=== PATIENT | female | born 1980 | race African-American/Black ===

== ENCOUNTER 2017-01-24 13:01 | Inpatient (IN) | payer MEDICAID, OTHER ==
[~2017-01-24] VITALS: Ht 165.1 cm; Wt 67.3 kg
[~2017-01-24 13:01] MED LIST: BACT800T5 PO
[2017-01-24 13:05] VITALS: BP 96/55; PULSE 118; RESP 24; TEMP 97.7; O2SAT 95
[2017-01-24] MEDS ORDERED: SODIUM CHLOR 0.9% 1000 ML INJ 1,000 ML IV SCH (13:41)
--- NOTE | 2017-01-24 13:42 | PD ---
HPI Chief Complaint: GI Complaint Time Seen by Provider: 13:42 Travel History International Travel<30 days: No Contact w/Intl Traveler<30days: No Traveled to known affect area: No History of Present Illness HPI 36-year-old female presents to emergency department for evaluation of nausea, vomiting, abdominal pain worsening over the last 24 hours. Pain is a 10 out of 10, sharp, stabbing. Patient has also had severe back pain, cramping. Pain is mostly epigastric and right upper quadrant. Not certain of fever but reports chills. Reports urinary frequency and hematuria that began today. Denies any vaginal discharge or bleeding states that she is due for her menstrual cycle. No other symptoms to report at this time. [facility] Past Medical History Medical History: Denies Significant Hx ?: Not LMP: 12/31/16 Social History Alcohol Use: No Tobacco Use: No Substance Use: No Allergies-Medications (Allergen,Severity, Reaction): Coded Allergies: No Known Allergies (Verified , 04/02/14) Reported Meds & Prescriptions Reported Meds & Active Scripts Active No Active Prescriptions or Reported Medications Review of Systems Except as stated in HPI: all other systems reviewed are Neg Physical Exam Narrative GENERAL: Well-nourished female patient, appears as though she does not feel well but in no acute distress SKIN: Warm and dry. HEAD: Atraumatic. Normocephalic. EYES: Pupils equal and round. No scleral icterus. No injection or drainage. ENT: No nasal bleeding or discharge. Mucous membranes pink and moist. NECK: Trachea midline. No JVD. CARDIOVASCULAR: Tachycardic rate and rhythm. No murmur appreciated. RESPIRATORY: No accessory muscle use. Clear to auscultation. Breath sounds equal bilaterally. Abdomen: Abdomen soft, nondistended. Significant right upper quadrant tenderness. Positive bowel sounds. Mild guarding. MUSCULOSKELETAL: No obvious deformities. No clubbing. No cyanosis. No edema. Right CVA tenderness NEUROLOGICAL: Awake and alert. No obvious cranial nerve deficits. Motor grossly within normal limits. Normal speech. PSYCHIATRIC: Appropriate mood and affect; insight and judgment normal. Data Data Last Documented VS Vital Signs Date Time Temp Pulse Resp B/P Pulse Ox O2 Delivery O2 Flow Rate FiO2 01/24/17 18:25 95 20 101/62 98 01/24/17 13:59 Room Air 01/24/17 13:05 97.7 Orders Complete Blood Count With Diff (01/24/17 13:41) Comprehensive Metabolic Panel (01/24/17 13:41) Lipase (01/24/17 13:41) Prothrombin Time / Inr (Pt) (01/24/17 13:41) Act Partial Throm Time (Ptt) (01/24/17 13:41) Urinalysis - C+S If Indicated (01/24/17 13:41) Ct Abd/Pel W Iv Contrast(Rout) (01/24/17 13:41) Iv Access Insert/Monitor (01/24/17 13:41) Ecg Monitoring (01/24/17 13:41) Oximetry (01/24/17 13:41) Ondansetron Inj (Zofran Inj) (01/24/17 13:45) Sodium Chlor 0.9% 1000 Ml Inj (Ns 1000 M (01/24/17 13:41) Sodium Chloride 0.9% Flush (Ns Flush) (01/24/17 13:45) Ed Urine Pregnancytest Poc (01/24/17 13:41) Ketorolac Inj (Toradol Inj) (01/24/17 13:45) Ceftriaxone Inj (Rocephin Inj) (01/24/17 14:15) Chest, Single Ap (01/24/17 ) Blood Culture (01/24/17 17:32) Lactic Acid Sepsis Protocol (01/24/17 17:32) Electrocardiogram (01/24/17 17:32) Influenzae A/B Antigen (01/24/17 17:32) Piperacil-Tazo 4.5 Gm Premix (Zosyn 4.5 (01/24/17 17:32) Sodium Chlor 0.9% 1000 Ml Inj (Ns 1000 M (01/24/17 17:33) Sodium Chlor 0.9% 1000 Ml Inj (Ns 1000 M (01/24/17 17:45) Iohexol 350 Inj (Omnipaque 350 Inj) (01/24/17 17:50) Levofloxacin 750 Mg Premix Inj (Levaquin (01/24/17 18:45) Metronidazole 500 Mg Inj (Flagyl 500 Mg (01/24/17 18:45) Morphine Inj (Morphine Inj) (01/24/17 18:45) Admit Order (Ed Use Only) (01/24/17 19:01) Labs Laboratory Tests Test 01/24/17 01/24/17 01/24/17 16:30 17:25 18:00 White Blood Count 15.6 TH/MM3 Red Blood Count 3.55 MIL/MM3 Hemoglobin 11.4 GM/DL Hematocrit 33.4 % Mean Corpuscular Volume 94.0 FL Mean Corpuscular Hemoglobin 32.2 PG Mean Corpuscular Hemoglobin 34.2 % Concent Red Cell Distribution Width 13.3 % Platelet Count 171 TH/MM3 Mean Platelet Volume 8.8 FL Neutrophils (%) (Auto) 98.3 % Lymphocytes (%) (Auto) 1.2 % Monocytes (%) (Auto) 0.1 % Eosinophils (%) (Auto) 0.1 % Basophils (%) (Auto) 0.3 % Neutrophils # (Auto) 15.3 TH/MM3 Lymphocytes # (Auto) 0.2 TH/MM3 Monocytes # (Auto) 0.0 TH/MM3 Eosinophils # (Auto) 0.0 TH/MM3 Basophils # (Auto) 0.0 TH/MM3 CBC Comment DIFF FINAL Differential Comment Prothrombin Time 12.6 SEC Prothromb Time International 1.1 RATIO Ratio Activated Partial 26.9 SEC Thromboplast Time Sodium Level 144 MEQ/L Potassium Level 3.2 MEQ/L Chloride Level 114 MEQ/L Carbon Dioxide Level 21.4 MEQ/L Anion Gap 9 MEQ/L Blood Urea Nitrogen 10 MG/DL Creatinine 1.19 MG/DL Estimat Glomerular Filtration 62 ML/MIN Rate Random Glucose 117 MG/DL Calcium Level 7.7 MG/DL Total Bilirubin 0.4 MG/DL Aspartate Amino Transf 17 U/L (AST/SGOT) Alanine Aminotransferase 10 U/L (ALT/SGPT) Alkaline Phosphatase 45 U/L Total Protein 5.6 GM/DL Albumin 3.0 GM/DL Lipase 143 U/L Urine Color LIGHT-RED Urine Turbidity CLOUDY Urine pH 6.0 Urine Specific [place] 1.014 Urine Protein 30 mg/dL Urine Glucose (UA) NEG mg/dL Urine Ketones 10 mg/dL Urine Occult Blood LARGE Urine Nitrite NEG Urine Bilirubin NEG Urine Urobilinogen LESS THAN 2.0 MG/DL Urine Leukocyte Esterase SMALL Urine RBC /hpf Urine WBC 4 /hpf Microscopic Urinalysis Comment CULT NOT INDICATED Lactic Acid Level 3.5 mmol/L MDM Medical Decision Making Medical Screen Exam Complete: Yes Emergency Medical Condition: Yes Medical Record Reviewed: Yes Differential Diagnosis Pyelonephritis versus cholecystitis versus renal calculi versus renal colic versus cystitis versus gastroenteritis versus gastritis versus viral syndrome Narrative Course 36-year-old female presents to emergency department for evaluation of nausea, vomiting, back pain, and hematuria. Patient is dry heaving here in the emergency department. IV access is obtained and she is given IV fluids and Zofran. Lab work and CT imaging is ordered. Last Impressions Abdomen/Pelvis CT 01/24/17 1341 Signed Impressions: Service Date/Time: Tuesday, January 24, 2017 17:41 - CONCLUSION: 1. Suspected hepatocellular disease. Liver is enlarged, mildly heterogeneous and there is periportal edema. Small ascites also noted. 2. Large pericholecystic fluid; not sure whether this is related to liver disease or possible acute cholecystitis. Please correlate clinically. 3. 9 mm indeterminate lesion of the right kidney and a nonemergent abdomen MRI with and without contrast is recommended. There are large but simple, benign appearing cysts of the left kidney. Joaquín Melendez MD Chest X-Ray 01/24/17 0000 Signed Impressions: Service Date/Time: Tuesday, January 24, 2017 14:17 - CONCLUSION: No acute cardiopulmonary disease demonstrated. Joaquín Melendez MD Laboratory Tests Test 01/24/17 01/24/17 01/24/17 16:30 17:25 18:00 White Blood Count 15.6 TH/MM3 Red Blood Count 3.55 MIL/MM3 Hemoglobin 11.4 GM/DL Hematocrit 33.4 % Mean Corpuscular Volume 94.0 FL Mean Corpuscular Hemoglobin 32.2 PG Mean Corpuscular Hemoglobin 34.2 % Concent Red Cell Distribution Width 13.3 % Platelet Count 171 TH/MM3 Mean Platelet Volume 8.8 FL Neutrophils (%) (Auto) 98.3 % Lymphocytes (%) (Auto) 1.2 % Monocytes (%) (Auto) 0.1 % Eosinophils (%) (Auto) 0.1 % Basophils (%) (Auto) 0.3 % Neutrophils # (Auto) 15.3 TH/MM3 Lymphocytes # (Auto) 0.2 TH/MM3 Monocytes # (Auto) 0.0 TH/MM3 Eosinophils # (Auto) 0.0 TH/MM3 Basophils # (Auto) 0.0 TH/MM3 CBC Comment DIFF FINAL Differential Comment Prothrombin Time 12.6 SEC Prothromb Time International 1.1 RATIO Ratio Activated Partial 26.9 SEC Thromboplast Time Sodium Level 144 MEQ/L Potassium Level 3.2 MEQ/L Chloride Level 114 MEQ/L Carbon Dioxide Level 21.4 MEQ/L Anion Gap 9 MEQ/L Blood Urea Nitrogen 10 MG/DL Creatinine 1.19 MG/DL Estimat Glomerular Filtration 62 ML/MIN Rate Random Glucose 117 MG/DL Calcium Level 7.7 MG/DL Total Bilirubin 0.4 MG/DL Aspartate Amino Transf 17 U/L (AST/SGOT) Alanine Aminotransferase 10 U/L (ALT/SGPT) Alkaline Phosphatase 45 U/L Total Protein 5.6 GM/DL Albumin 3.0 GM/DL Lipase 143 U/L Urine Color LIGHT-RED Urine Turbidity CLOUDY Urine pH 6.0 Urine Specific [place] 1.014 Urine Protein 30 mg/dL Urine Glucose (UA) NEG mg/dL Urine Ketones 10 mg/dL Urine Occult Blood LARGE Urine Nitrite NEG Urine Bilirubin NEG Urine Urobilinogen LESS THAN 2.0 MG/DL Urine Leukocyte Esterase SMALL Urine RBC /hpf Urine WBC 4 /hpf Microscopic Urinalysis Comment CULT NOT INDICATED Lactic Acid Level 3.5 mmol/L I spoke with my attending regarding the pt. CT results. I spoke with Dr. Escobar. He requested admission to medicine, IV Levaquin and Flagyl. I Spoke with Dr. Acosta. Patient will be admitted to service with a consult to [facility] surgical services. Patient's pain continues to worsen. I have asked that my attending physician reassess her. He contacted Dr. escobar in regards to patient' s worsening pain. He will come in to assess pt. Sepsis Criteria SIRS Criteria (2 or more): Heart rate over 90, WBC > 91869, < 4000 or > 10% bands Sepsis Criteria (SIRS+source): Infect source susp/known Severe Sepsis (+one): Lactate >2 Diagnosis Primary Impression: Severe sepsis Additional Impressions: Abdominal pain Qualified Code: R10.11 - Right upper quadrant abdominal pain Hepatosplenomegaly Cholecystitis, unspecified Admitting Information Admitting Physician Requests: Admit Scripts No Active Prescriptions or Reported Meds Condition: Stable Mago De SouzaP Jan 24, 2017 13:42
[2017-01-24] MEDS ORDERED: SODIUM CHLORIDE 0.9% FLUSH 5 ML FLUSH IVF PRN ×2 (13:45→19:15)
[2017-01-24] MEDS ORDERED: KETOROLAC TROMETHAMINE 30 MG/ML (IVP) VIAL IV PUSH ONE (13:45)
[2017-01-24] MEDS ORDERED: ONDANSETRON HCL 4 MG/2 ML VIAL IVP ONE (13:45)
[2017-01-24] MEDS ORDERED: cefTRIAXone INJ 1,000 MG in SODIUM CHLORIDE 0.9% INJ 100 ML IV ONE (14:15)
--- NOTE | 2017-01-24 14:49 | RADRPT ---
EXAM DATE/TIME: 01/24/2017 14:17 [facility] COMPARISON: No previous studies available for comparison. INDICATIONS : Coughing with radiating pain MEDICAL HISTORY : None. SURGICAL HISTORY : None. ENCOUNTER: Initial ACUITY: 1 day PAIN SCORE: 9/10 LOCATION: Bilateral chest FINDINGS: A single view of the chest demonstrates the lungs to be symmetrically aerated without evidence of mas s, infiltrate or effusion. The cardiomediastinal contours are unremarkable. Osseous structures are intact. CONCLUSION: No acute cardiopulmonary disease demonstrated. Joaquín Melendez MD on January 24, 2017 at 14:48 Board Certified Radiologist. This report was verified electronically.
[2017-01-24 16:41] LABS: AUTOMATED NEUTROPHIL # 15.3 TH/MM3 (1.8-7.7); BASOPHIL % 0.3 % (0.0-2.0); EOSINOPHIL % 0.1 % (0.0-4.0); HEMATOCRIT 33.4 % (35.0-46.0); HEMO FLAGS DIFF FINAL; LYMPH % 1.2 % (9.0-44.0); LYMPHOCYTE # 0.2 TH/MM3 (1.0-4.8); MEAN CORPUSCULAR HEMOGLOBIN 32.2 PG (27.0-34.0); MEAN CORPUSCULAR HGB CONC 34.2 % (32.0-36.0); MONO % 0.1 % (0.0-8.0); NEUT % 98.3 % (16.0-70.0); PLATELET COUNT 171 TH/MM3 (150-450); RED BLOOD COUNT 3.55 MIL/MM3 (4.00-5.30); RED CELL DISTRIBUTION WIDTH 13.3 % (11.6-17.2); WHITE BLOOD COUNT 15.6 TH/MM3 (4.0-11.0)
[2017-01-24 16:56] LABS: APTT (PATIENT) 26.9 SEC (24.3-30.1); INTERNATIONAL NORMALIZED RATIO 1.1 RATIO; PROTHROMBIN TIME - PATIENT 12.6 SEC (9.8-11.6)
[2017-01-24 17:00] VITALS: BP 100/55; PULSE 101; RESP 21; O2SAT 95
[2017-01-24 17:03] LABS: ALT (GPT) 10 U/L (10-53); ANION GAP 9 MEQ/L (5-15); AST (GOT) 17 U/L (15-37); BICARBONATE 21.4 MEQ/L (21.0-32.0); BLOOD UREA NITROGEN 10 MG/DL (7-18); CHLORIDE 114 MEQ/L (98-107); GLOMERULAR FILTRATION RATE 62 ML/MIN (>89); POTASSIUM 3.2 MEQ/L (3.5-5.1); SODIUM (NA) 144 MEQ/L (136-145)
[2017-01-24 17:05] LABS: ALKALINE PHOSPHATASE 45 U/L (45-117); TOTAL BILIRUBIN ADULT 0.4 MG/DL (0.2-1.0)
[2017-01-24] MEDS ORDERED: PIPERACIL-TAZO 4.5 GM PREMIX 100 ML IV STA (17:32)
[2017-01-24] MEDS ORDERED: SODIUM CHLOR 0.9% 1000 ML INJ 1,000 ML IV ONE ×2 (17:33→17:45)
[2017-01-24] MEDS ORDERED: IOHEXOL 350 MG/ML 10 ML VIAL (for RAD DIAG) IV ONE (17:50)
[2017-01-24 17:55] LABS: BLOOD, URINE LARGE (NEG); COMMENT (UR) CULT NOT INDICATED; CULTURE IF INDICATED CULT NOT INDICATED; GLUCOSE,URINE NEG (NEG); KETONE, URINE 10 mg/dL (NEG); NITRITE,URINE NEG (NEG); URINE COLOR LIGHT-RED (YELLW/STRAW)
--- NOTE | 2017-01-24 18:03 | RADRPT ---
EXAM DATE/TIME: 01/24/2017 17:41 This report includes an Addendum and supersedes previous reports for this exam. [facility] COMPARISON: No previous studies available for comparison. INDICATIONS : Nausea, vomiting, abdominal pain and hematuria. IV CONTRAST: 100 cc Omnipaque 350 (iohexol) IV ORAL CONTRAST: No oral contrast ingested. RADIATION DOSE: 5.12 CTDIvol (mGy) MEDICAL HISTORY : None SURGICAL HISTORY : None. ENCOUNTER: Initial ACUITY: 2 days PAIN SCALE: 8/10 LOCATION: Right upper quadrant and lower quadrant TECHNIQUE: Volumetric scanning of the abdomen and pelvis was performed. Using automated exposure control and ad justment of the mA and/or kV according to patient size, radiation dose was kept as low as reasonably achievable to obtain optimal diagnostic quality images. FINDINGS: Wall thickening and marked pericholecystic fluid seen in the gallbladder. Small stones are possible. There is periportal edema. I don't see distention of the common bile duct. Small perihepatic ascites. There is free fluid tracking into the pelvis. Nothing organized or drainable. I don't see intraperit loya hemorrhage. Liver is enlarged at 20 cm craniocaudal. The spleen is normal size. No stone or destruction seen of either kidney. Right kidney has a 9 mm intermediate density lesion of the mid zone. There are cysts of the left kidney measuring 5 cm of the upper pole and 3.4 cm of the lower pole. No obstruction or inflammatory changes are seen at the gastrointestinal tract. The appendix is well-v isualized, within normal limits. CONCLUSION: 1. Suspected hepatocellular disease. Liver is enlarged, mildly heterogeneous and there is periportal edema. Small ascites also noted. 2. Large pericholecystic fluid; not sure whether this is related to liver disease or possible acute c holecystitis. Please correlate clinically. 3. 9 mm indeterminate lesion of the right kidney and a nonemergent abdomen MRI with and without contr ast is recommended. There are large but simple, benign appearing cysts of the left kidney. Joaquín Melendez MD on January 24, 2017 at 17:54 Board Certified Radiologist. This report was verified electronically. ADDENDUM: Liver is enlarged at 20 cm craniocaudal. Spleen is normal size. Joaquín Melendez MD on January 24, 2017 at 20:02 Board Certified Radiologist. This report was verified electronically.
[2017-01-24 18:25] VITALS: BP 101/62; PULSE 95; RESP 20; O2SAT 98
[2017-01-24] MEDS ORDERED: MORPHINE SULFATE 4 MG/ML INJ IV PUSH ONE (18:45)
[2017-01-24] MEDS ORDERED: LEVOFLOXACIN 750 MG PREMIX INJ 150 ML IV ONE (18:45)
[2017-01-24] MEDS ORDERED: metroNIDAZOLE 500 MG INJ 100 ML IV ONE (18:45)
[2017-01-24] MEDS ORDERED: ACETAMINOPHEN 325 MG TAB PO PRN (19:15)
[2017-01-24 19:25] VITALS: BP 122/75; PULSE 102; RESP 24; O2SAT 100
[2017-01-24 20:10] LABS: LACTIC ACID GHOST NOT REPORTABLE
[2017-01-24] MEDS ORDERED: MORPHINE SULFATE 4 MG/ML INJ IV PUSH PRN (21:30)
[2017-01-24] MEDS: SODIUM CHLORIDE 0.9% FLUSH 5 ML FLUSH IVF SCH (21:50)
[2017-01-24 22:13] VITALS: BP 105/72; PULSE 103; RESP 22; O2SAT 100
[2017-01-24] MEDS: NS + KCL 20 MEQ INJ 1,000 ML IV SCH (22:34)
--- NOTE | 2017-01-24 23:21 | PD.CONS ---
General Surgery Consult Gen. surgery consultation: The patient is a 36-year-old lady who began having vague abdominal discomfort although she states it was not really pain several days ago. It the discomfort was associated with what she described as crampy-like pain as could be associated with menstrual cramps and she was beginning to have her period as well. She also noted hematuria which was separate from her menses. She began having nausea earlier on the day of admission which was quite severe and not associated with food intake. Her symptoms progressed and she eventually came to the emergency department around noon today. After admission, she began complaining of severe midepigastric right upper quadrant pain and had several episodes of severe nausea and emesis. At the present time the patient states that she has pain which is present and slightly better than it had been previously. Her nausea has been significantly better. She states she is hungry and would like to eat some fruit. Past medical history: The patient has had hand surgery but otherwise denies any major medical or surgical illnesses. She has had no surgery. She takes no medications and has no known drug allergies. Social history the patient does not smoke or use alcohol. Family history: noncontributory Review of systems: Negative except as in history of present illness. Examination: Vital Signs Date Time Temp Pulse Resp B/P Pulse Ox O2 Delivery O2 Flow Rate FiO2 01/24/17 22:34 20 01/24/17 22:13 103 22 105/72 100 Room Air 01/24/17 19:30 21 01/24/17 19:25 102 24 122/75 100 Room Air 01/24/17 19:25 24 01/24/17 18:25 95 20 101/62 98 01/24/17 17:00 101 21 100/55 95 01/24/17 13:59 Room Air 01/24/17 13:05 97.7 118 24 96/55 95 HEENT: Unremarkable NECK: Trachea midline; there is no palpable adenopathy CHEST: Symmetrical with good breath sounds bilaterally HEART: Regular rate and rhythm with no murmurs or gallops ABDOMEN: Patient's abdomen is soft throughout. She is moderately tender in the mid abdomen and the right upper quadrant but at the time of this examination she does not have a positive Davis sign. There is no guarding or rebound tenderness at this time. EXTREMITIES: Cyanosis clubbing or edema. Peripheral pulses 2+ equal bilaterally. NEURO: No gross abnormalities. Laboratory Tests Test 01/24/17 01/24/17 01/24/17 16:30 17:25 18:00 White Blood Count 15.6 TH/MM3 Red Blood Count 3.55 MIL/MM3 Hemoglobin 11.4 GM/DL Hematocrit 33.4 % Mean Corpuscular Volume 94.0 FL Mean Corpuscular Hemoglobin 32.2 PG Mean Corpuscular Hemoglobin 34.2 % Concent Red Cell Distribution Width 13.3 % Platelet Count 171 TH/MM3 Mean Platelet Volume 8.8 FL Neutrophils (%) (Auto) 98.3 % Lymphocytes (%) (Auto) 1.2 % Monocytes (%) (Auto) 0.1 % Eosinophils (%) (Auto) 0.1 % Basophils (%) (Auto) 0.3 % Neutrophils # (Auto) 15.3 TH/MM3 Lymphocytes # (Auto) 0.2 TH/MM3 Monocytes # (Auto) 0.0 TH/MM3 Eosinophils # (Auto) 0.0 TH/MM3 Basophils # (Auto) 0.0 TH/MM3 CBC Comment DIFF FINAL Differential Comment Prothrombin Time 12.6 SEC Prothromb Time International 1.1 RATIO Ratio Activated Partial 26.9 SEC Thromboplast Time Sodium Level 144 MEQ/L Potassium Level 3.2 MEQ/L Chloride Level 114 MEQ/L Carbon Dioxide Level 21.4 MEQ/L Anion Gap 9 MEQ/L Blood Urea Nitrogen 10 MG/DL Creatinine 1.19 MG/DL Estimat Glomerular Filtration 62 ML/MIN Rate Random Glucose 117 MG/DL Calcium Level 7.7 MG/DL Total Bilirubin 0.4 MG/DL Aspartate Amino Transf 17 U/L (AST/SGOT) Alanine Aminotransferase 10 U/L (ALT/SGPT) Alkaline Phosphatase 45 U/L Total Protein 5.6 GM/DL Albumin 3.0 GM/DL Lipase 143 U/L Urine Color LIGHT-RED Urine Turbidity CLOUDY Urine pH 6.0 Urine Specific [place] 1.014 Urine Protein 30 mg/dL Urine Glucose (UA) NEG mg/dL Urine Ketones 10 mg/dL Urine Occult Blood LARGE Urine Nitrite NEG Urine Bilirubin NEG Urine Urobilinogen LESS THAN 2.0 MG/DL Urine Leukocyte Esterase SMALL Urine RBC /hpf Urine WBC 4 /hpf Microscopic Urinalysis Comment CULT NOT INDICATED Lactic Acid Level 3.5 mmol/L Last 24 hours Impressions Abdomen/Pelvis CT 01/24/17 1341 Signed Impressions: Service Date/Time: Tuesday, January 24, 2017 17:41 - CONCLUSION: 1. Suspected hepatocellular disease. Liver is enlarged, mildly heterogeneous and there is periportal edema. Small ascites also noted. 2. Large pericholecystic fluid; not sure whether this is related to liver disease or possible acute cholecystitis. Please correlate clinically. 3. 9 mm indeterminate lesion of the right kidney and a nonemergent abdomen MRI with and without contrast is recommended. There are large but simple, benign appearing cysts of the left kidney. Joaquín Melendez MD ADDENDUM: Liver is enlarged at 20 cm craniocaudal. Spleen is normal size. Joaquín Melendez MD Chest X-Ray 01/24/17 0000 Signed Impressions: Service Date/Time: Tuesday, January 24, 2017 14:17 - CONCLUSION: No acute cardiopulmonary disease demonstrated. Joaquín Melendez MD Impression: Findings consistent with possible acute cholecystitis. I reviewed the CT scan with Dr. Melendez who feels that the liver has significant disease in it. Her liver function tests are completely normal at this point, so the findings are inconsistent. Her clinical exam is not consistent with severe acute cholecystitis at the time of this examination. Plan: Patient will be given liquids and food (which she would like to have) tonight and will be made nothing by mouth after midnight. I told the patient and her that she may well require surgery in the next 24-48 hours but that I would like to perform several other tests. CBC, BMP, and LFTs been ordered for the morning. Ultrasound of the gallbladder is also ordered for the morning for further evaluation. She will be placed on antibiotics upon admission. Christo Palma MD Jan 24, 2017 23:21
[2017-01-24] MEDS ORDERED: PROMETHAZINE HCL 25 MG TAB PO PRN (23:30)
[2017-01-25] VITALS (7 sets, daily range): BP systolic 94–106; BP diastolic 53–67; PULSE 65–90; RESP 16–20; TEMP 96.9–98.1; O2SAT 93–100
[2017-01-25] MEDS: HYDROmorphone HCL PF 2 MG/ML VIAL IV PUSH PRN ×2 (00:15→08:27)
[2017-01-25] MEDS: ZOLPIDEM TARTRATE 10 MG TAB PO PRN ×2 (00:16→21:31)
[2017-01-25] MEDS: ONDANSETRON HCL 4 MG/2 ML VIAL IV PRN ×3 (00:38→23:17)
[2017-01-25 05:58] LABS: AUTOMATED NEUTROPHIL # 38.3 TH/MM3 (1.8-7.7); BASOPHIL % 0.1 % (0.0-2.0); HEMATOCRIT 31.3 % (35.0-46.0); LYMPH % 0.8 % (9.0-44.0); LYMPHOCYTE # 0.3 TH/MM3 (1.0-4.8); MEAN CELL VOLUME 95.5 FL (80.0-100.0); MEAN CORPUSCULAR HEMOGLOBIN 32.3 PG (27.0-34.0); MEAN CORPUSCULAR HGB CONC 33.8 % (32.0-36.0); MONO % 1.8 % (0.0-8.0); NEUT % 97.3 % (16.0-70.0); PLATELET COUNT 149 TH/MM3 (150-450); RED BLOOD COUNT 3.27 MIL/MM3 (4.00-5.30); RED CELL DISTRIBUTION WIDTH 13.3 % (11.6-17.2); WHITE BLOOD COUNT 39.3 TH/MM3 (4.0-11.0)
[2017-01-25 06:02] LABS: HEMO FLAGS AUTO DIFF
[2017-01-25 06:31] LABS: INDIRECT BILIRUBIN 0.2 MG/DL (0.0-0.8); TOTAL BILIRUBIN ADULT 0.3 MG/DL (0.2-1.0)
[2017-01-25 06:48] LABS: CALCIUM-PROTEIN CORRECTED 8.1 MG/DL (8.5-10.1); TOTAL BILIRUBIN ADULT 0.3 MG/DL (0.2-1.0)
[2017-01-25] MEDS: NS + KCL 20 MEQ INJ 1,000 ML IV SCH (08:26)
[2017-01-25 08:32] LABS: BANDS 43 % (0-6); METAMYELOCYTES 2 % (0-1); NEUTROPHIL # MANUAL DIFF 38.9 TH/MM3 (1.8-7.7); POLYS (SEG NEUTROPHILS) 54 % (16-70); WBC DIFF SAMPLE 100
[2017-01-25 08:33] LABS: PLATELET ESTIMATE SMEAR NORMAL (NORMAL); PLATELET MORPHOLOGY NORMAL (NORMAL); SCAN/DIFF FINAL DIFF MANUAL
--- NOTE | 2017-01-25 08:54 | RADRPT ---
EXAM DATE/TIME: 01/25/2017 08:11 [facility] COMPARISON: No previous studies available for comparison. INDICATIONS : Right upper quadrant pain. MEDICAL HISTORY : Dyspnea. Arthritis. SURGICAL HISTORY : Tendon surgery, right hand. ENCOUNTER: Initial ACUITY: 1 day PAIN SCORE: 4/10 LOCATION: Right upper quadrant MEASUREMENTS: LIVER: 20.3 cm length COMMON DUCT: 5 mm RIGHT KIDNEY: 12.1 x 5.1 x 6.0 cm FINDINGS: LIVER: The liver is enlarged without focal lesion or ductal dilatation. There is mild/moderate ascites seen in Modi's pouch and around the gallbladder fossa COMMON DUCT: No intraluminal mass or stone visualized. GALLBLADDER: No gallstones are seen. The gallbladder wall is thickened. There is scott-cholecystic fluid. PANCREAS: The visualized portions are within normal limits. RIGHT KIDNEY: No evidence of hydronephrosis, stone, or solid mass. There is a 1.0 cm cyst at the mid kidney. CONCLUSION: 1. Hepatomegaly 2. Mild ascites 3. Thickened gallbladder wall. This can be seen with hepatic disease. No gallstones are seen. Acalcul us cholecystitis could have a similar appearance. Joaquín Cullen MD on January 25, 2017 at 8:50 Board Certified Radiologist. This report was verified electronically.
[2017-01-25] MEDS: SODIUM CHLORIDE 0.9% FLUSH 5 ML FLUSH IVF SCH ×2 (09:00→20:54)
--- NOTE | 2017-01-25 11:34 | HHI.HP ---
HPI Service [facility] Hospitalists Primary Care Physician Nkechi Kelley M.D. Admission Diagnosis hepatomegaly, possible acute cholecystitis Chief Complaint: abdomen pain Travel History International Travel<30 Days: No Contact w/Intl Traveler <30 Da: No Traveled to Known Affected Are: No History of Present Illness Pt is 36 yo developed some abdomen pain epigastric then ruq. Has been vomiting no diarrhea. no fever or chills. no diarrhea. Says she is on her menstrual cycle and noted blood in her urine as has occured in the past. She has not had any gynecological evaluations recently. Seen by gen surg last night for pain and possible cholecystitis. given iv abx in ED. Currently in nad. Review of Systems Other mentruating. blood in urine. abdomen pain. vomiting. Past Family Social History Past Medical History left hand surgery Reported Medications Reported Meds & Active Scripts Active No Active Prescriptions or Reported Medications Allergies: Coded Allergies: No Known Allergies (Verified , 01/28/17) Family History nc Social History occ etoh. no tob. Physical Exam Vital Signs nad heart reg lung cta abd mild upper abdomen tenderness no rebound or davenport sign. bs. nd ext no edema Vital Signs Date Time Temp Pulse Resp B/P Pulse Ox O2 Delivery O2 Flow Rate FiO2 01/25/17 09:59 99 21 01/25/17 08:00 97.8 74 20 94/67 100 01/25/17 04:00 97.3 71 18 97/59 100 01/25/17 00:00 83 01/25/17 00:00 96.9 90 16 95/62 100 01/24/17 22:34 20 01/24/17 22:13 103 22 105/72 100 Room Air 01/24/17 19:30 21 01/24/17 19:25 102 24 122/75 100 Room Air 01/24/17 19:25 24 01/24/17 18:25 95 20 101/62 98 01/24/17 17:00 101 21 100/55 95 01/24/17 13:59 Room Air 01/24/17 13:05 97.7 118 24 96/55 95 Laboratory Laboratory Tests Test 01/24/17 01/24/17 01/24/17 01/24/17 16:30 17:25 18:00 23:10 White Blood Count 15.6 Red Blood Count 3.55 Hemoglobin 11.4 Hematocrit 33.4 Mean Corpuscular Volume 94.0 Mean Corpuscular Hemoglobin 32.2 Mean Corpuscular Hemoglobin 34.2 Concent Red Cell Distribution Width 13.3 Platelet Count 171 Mean Platelet Volume 8.8 Neutrophils (%) (Auto) 98.3 Lymphocytes (%) (Auto) 1.2 Monocytes (%) (Auto) 0.1 Eosinophils (%) (Auto) 0.1 Basophils (%) (Auto) 0.3 Neutrophils # (Auto) 15.3 Lymphocytes # (Auto) 0.2 Monocytes # (Auto) 0.0 Eosinophils # (Auto) 0.0 Basophils # (Auto) 0.0 CBC Comment DIFF FINAL Differential Comment Prothrombin Time 12.6 Prothromb Time International 1.1 Ratio Activated Partial 26.9 Thromboplast Time Sodium Level 144 Potassium Level 3.2 Chloride Level 114 Carbon Dioxide Level 21.4 Anion Gap 9 Blood Urea Nitrogen 10 Creatinine 1.19 Estimat Glomerular Filtration 62 Rate Random Glucose 117 Calcium Level 7.7 Total Bilirubin 0.4 Aspartate Amino Transf 17 (AST/SGOT) Alanine Aminotransferase 10 (ALT/SGPT) Alkaline Phosphatase 45 Total Protein 5.6 Albumin 3.0 Lipase 143 Urine Color LIGHT-RED Urine Turbidity CLOUDY Urine pH 6.0 Urine Specific Schuyler 1.014 Urine Protein 30 Urine Glucose (UA) NEG Urine Ketones 10 Urine Occult Blood LARGE Urine Nitrite NEG Urine Bilirubin NEG Urine Urobilinogen LESS THAN 2.0 Urine Leukocyte Esterase SMALL Urine RBC Urine WBC 4 Microscopic Urinalysis Comment CULT NOT INDICATED Lactic Acid Level 3.5 3.3 Test 01/25/17 05:13 White Blood Count 39.3 Red Blood Count 3.27 Hemoglobin 10.6 Hematocrit 31.3 Mean Corpuscular Volume 95.5 Mean Corpuscular Hemoglobin 32.3 Mean Corpuscular Hemoglobin 33.8 Concent Red Cell Distribution Width 13.3 Platelet Count 149 Mean Platelet Volume 9.0 Neutrophils (%) (Auto) 97.3 Lymphocytes (%) (Auto) 0.8 Monocytes (%) (Auto) 1.8 Eosinophils (%) (Auto) 0.0 Basophils (%) (Auto) 0.1 Neutrophils # (Auto) 38.3 Lymphocytes # (Auto) 0.3 Monocytes # (Auto) 0.7 Eosinophils # (Auto) 0.0 Basophils # (Auto) 0.0 CBC Comment AUTO DIFF Differential Total Cells 100 Counted Neutrophils % (Manual) 54 Band Neutrophils % 43 Monocytes % 1 Neutrophils # (Manual) 38.9 Metamyelocytes 2 Differential Comment FINAL DIFF MANUAL Platelet Estimate NORMAL Platelet Morphology Comment NORMAL Red Cell Morphology Comment NORMAL Sodium Level 144 Potassium Level 4.0 Chloride Level 113 Carbon Dioxide Level 21.0 Anion Gap 10 Blood Urea Nitrogen 12 Creatinine 1.23 Estimat Glomerular Filtration 59 Rate Random Glucose 125 Calcium Level 7.4 Protein Corrected Calcium 8.1 Total Bilirubin 0.3 Direct Bilirubin 0.1 Indirect Bilirubin 0.2 Aspartate Amino Transf 18 (AST/SGOT) Alanine Aminotransferase 14 (ALT/SGPT) Alkaline Phosphatase 40 Total Protein 5.9 Albumin 2.8 Date/Time Procedure Status Source Growth 01/24/17 18:00 Aerobic Blood Culture - Preliminary Resulted Blood Peripheral NO GROWTH IN 1 DAY 01/24/17 18:00 Anaerobic Blood Culture - Preliminary Resulted Blood Peripheral NO GROWTH IN 1 DAY 01/24/17 17:32 Influenza Types A,B Antigen (YANY) - Final Complete Nasal Washing NEGATIVE FOR FLU A AND B ANTIGEN.... Result Diagram: 01/25/1751201/25/17512 Assessment and Plan Problem List: (1) Abdominal pain Status: Acute Plan: Pt presents with abdomen pain, alot of pericholecystic fluid concerning for acute cholecystitis, but also hepatomegaly. Also of note pt says she has problems with hematuria when on her menstrual cycle. She has a rising leukocytosis of 39k with 43bands. mariana noted. concern for early sepsis developing. discussed with general surgery. contemplating cholecystectomy...we agreed to GI evaluation before proceeding to surgery. Discussed with Dr Gabriel who will evaluate her this AM. cont broad spectrum abx. ivf Pt may need gynecology/urology eval blood cx pending. ID (2) Hepatomegaly Status: Acute Plan: see above (3) Hematuria Status: Acute Plan: see above (4) MARIANA (acute kidney injury) Status: Acute Plan: see above Physician Certification 2 Midnight Certification Type: Admission for Inpatient Services Order for Inpatient Services 3The services are ordered in accordance with Medicare regulations or non- Medicare payer requirements, as applicable. In the case of services not specified as inpatient-only, they are appropriately provided as inpatient services in accordance with the 2-midnight benchmark. Estimated LOS (days): 3 3 days is the estimated time the patient will need to remain in the hospital, assuming treatment plan goals are met and no additional complications. Post-Hospital Plan: Home Problem Qualifiers (1) Abdominal pain: Qualified Code: R10.11 - Right upper quadrant abdominal pain Satnam Montanez MD Jan 25, 2017 11:34
[2017-01-25] MEDS ORDERED: PROPOFOL 200 MG/20 ML AMP IV ONE (11:46)
[2017-01-25] MEDS ORDERED: NEOSTIGMINE 3 MG/3 ML SYR IV ONE (11:47)
[2017-01-25] MEDS ORDERED: ONDANSETRON HCL 4 MG/2 ML VIAL IV PUSH ONE (11:47)
[2017-01-25] MEDS ORDERED: PHENYLEPH/NS 1000 MCG/10 ML SYR IV ONE (11:47)
[2017-01-25] MEDS: metroNIDAZOLE 500 MG INJ 100 ML IV SCH ×2 (12:22→20:00)
--- NOTE | 2017-01-25 12:23 | HHI.PR ---
Subjective Subjective Notes Still having pain, but her primary complaint is nausea. Objective Vitals/I&O Vital Signs Date Time Temp Pulse Resp B/P Pulse Ox O2 Delivery O2 Flow Rate FiO2 01/25/17 09:59 99 21 01/25/17 08:00 97.8 74 20 94/67 01/24/17 22:13 Room Air Labs Laboratory Tests Test 01/24/17 01/24/17 01/24/17 01/24/17 16:30 17:25 18:00 23:10 White Blood Count 15.6 Red Blood Count 3.55 Hemoglobin 11.4 Hematocrit 33.4 Mean Corpuscular Volume 94.0 Mean Corpuscular Hemoglobin 32.2 Mean Corpuscular Hemoglobin 34.2 Concent Red Cell Distribution Width 13.3 Platelet Count 171 Mean Platelet Volume 8.8 Neutrophils (%) (Auto) 98.3 Lymphocytes (%) (Auto) 1.2 Monocytes (%) (Auto) 0.1 Eosinophils (%) (Auto) 0.1 Basophils (%) (Auto) 0.3 Neutrophils # (Auto) 15.3 Lymphocytes # (Auto) 0.2 Monocytes # (Auto) 0.0 Eosinophils # (Auto) 0.0 Basophils # (Auto) 0.0 CBC Comment DIFF FINAL Differential Comment Prothrombin Time 12.6 Prothromb Time International 1.1 Ratio Activated Partial 26.9 Thromboplast Time Sodium Level 144 Potassium Level 3.2 Chloride Level 114 Carbon Dioxide Level 21.4 Anion Gap 9 Blood Urea Nitrogen 10 Creatinine 1.19 Estimat Glomerular Filtration 62 Rate Random Glucose 117 Calcium Level 7.7 Total Bilirubin 0.4 Aspartate Amino Transf 17 (AST/SGOT) Alanine Aminotransferase 10 (ALT/SGPT) Alkaline Phosphatase 45 Total Protein 5.6 Albumin 3.0 Lipase 143 Urine Color LIGHT-RED Urine Turbidity CLOUDY Urine pH 6.0 Urine Specific Blackwell 1.014 Urine Protein 30 Urine Glucose (UA) NEG Urine Ketones 10 Urine Occult Blood LARGE Urine Nitrite NEG Urine Bilirubin NEG Urine Urobilinogen LESS THAN 2.0 Urine Leukocyte Esterase SMALL Urine RBC Urine WBC 4 Microscopic Urinalysis Comment CULT NOT INDICATED Lactic Acid Level 3.5 3.3 Test 01/25/17 05:13 White Blood Count 39.3 Red Blood Count 3.27 Hemoglobin 10.6 Hematocrit 31.3 Mean Corpuscular Volume 95.5 Mean Corpuscular Hemoglobin 32.3 Mean Corpuscular Hemoglobin 33.8 Concent Red Cell Distribution Width 13.3 Platelet Count 149 Mean Platelet Volume 9.0 Neutrophils (%) (Auto) 97.3 Lymphocytes (%) (Auto) 0.8 Monocytes (%) (Auto) 1.8 Eosinophils (%) (Auto) 0.0 Basophils (%) (Auto) 0.1 Neutrophils # (Auto) 38.3 Lymphocytes # (Auto) 0.3 Monocytes # (Auto) 0.7 Eosinophils # (Auto) 0.0 Basophils # (Auto) 0.0 CBC Comment AUTO DIFF Differential Total Cells 100 Counted Neutrophils % (Manual) 54 Band Neutrophils % 43 Monocytes % 1 Neutrophils # (Manual) 38.9 Metamyelocytes 2 Differential Comment FINAL DIFF MANUAL Platelet Estimate NORMAL Platelet Morphology Comment NORMAL Red Cell Morphology Comment NORMAL Sodium Level 144 Potassium Level 4.0 Chloride Level 113 Carbon Dioxide Level 21.0 Anion Gap 10 Blood Urea Nitrogen 12 Creatinine 1.23 Estimat Glomerular Filtration 59 Rate Random Glucose 125 Calcium Level 7.4 Protein Corrected Calcium 8.1 Total Bilirubin 0.3 Direct Bilirubin 0.1 Indirect Bilirubin 0.2 Aspartate Amino Transf 18 (AST/SGOT) Alanine Aminotransferase 14 (ALT/SGPT) Alkaline Phosphatase 40 Total Protein 5.9 Albumin 2.8 Date/Time Procedure Status Source Growth 01/24/17 18:00 Aerobic Blood Culture - Preliminary Resulted Blood Peripheral NO GROWTH IN 1 DAY 01/24/17 18:00 Anaerobic Blood Culture - Preliminary Resulted Blood Peripheral NO GROWTH IN 1 DAY 01/24/17 17:32 Influenza Types A,B Antigen (YANY) - Final Complete Nasal Washing NEGATIVE FOR FLU A AND B ANTIGEN.... Narrative Exam Uncomfortable but not acutely ill appearing Abd: soft, mild RLQ and LUQ ttp, mod-severe RUQ ttp A/P Assessment and Plan 36 yo F with RUQ pain, nausea, vomiting, hepatomegaly. I reviewed all her previous labs, imaging and discussed case with Dr. Palma and Dr. Gabriel. Findings are a little confusing, especially with no gallstones and significant leukocytosis and bandemia, but I recommend to proceed with cholecystectomy at this time. Acute cholecystitis is the most likely etiology of her symptoms and findings. I discussed this all with the patient including details, risks, and benefits of procedure and she desires to proceed. Av Wagner MD Jan 25, 2017 12:23
--- NOTE | 2017-01-25 14:24 | MB ---
cc: SOPHIA ROBB M.D., RICHARD L. M.D. BLAIR-BRITT, LORAY A. M.D. DATE OF CONSULTATION: 01/26/2016 REASON FOR CONSULTATION: Abdominal pain, possible cholecystitis. HISTORY: Mrs. Johnson is a 36-year-old lady basically admitted with a one to two day history of nausea and abdominal pain. IMAGING STUDIES So far suggest possibility of acute cholecystitis GI service has been consulted. Further recommendations. The patient has already been seen by general surgery. REVIEW OF SYSTEMS The patient has nausea, some abdominal discomfort which was localized in the right upper quadrant. She has also states she is passing some blood in the urine PAST MEDICAL HISTORY Noncontributory. MEDICATIONS On admission none. ALLERGIES None. FAMILY HISTORY Noncontributory. SOCIAL HISTORY: Occasional alcohol. No tobacco. PHYSICAL EXAMINATION: IN GENERAL: The physical examination reveals a well-nourished lady in no apparent distress. VITAL SIGNS: Stable. HEAD/NECK: Head and neck examination anicteric sclerae. CHEST: Bilateral air entry with rales. ABDOMEN: The abdomen is soft, tenderness in the right upper quadrant with some guarding. CENTRAL NERVOUS SYSTEM: exam is nonfocal. RECTUM: Rectal exam deferred at this time. LABORATORY FINDINGS: The labs reveal white cell count of 39,000, creatinine 1.23. Liver function tests are normal. Lipase is normal. RADIOLOGIC: A gallbladder ultrasound shows hepatomegaly thickened gallbladder wall, a CT of the abdomen and pelvis reveals suspected hepatocellular disease. Liver is enlarged a large pericholecystic fluid collection a 9 mm indeterminate lesion on the right kidney. IMPRESSION Possible acute cholecystitis. RECOMMENDATIONS General surgery is consulted, we will recommend a HIDA scan, possible endoscopy discussed with the patient if the HIDA scan is nonspecific. The case discussed with Dr. Watts. Continue broad spectrum antibiotics for increasing white cell count. Thank you for this referral. MD MOISES López/shmuel /11:44 AM /2:16 PM
[2017-01-25] MEDS ORDERED: BUPIVACAINE/EPINEPHRINE 0.25% PF 10 ML VIAL ONE (14:54)
[2017-01-25] MEDS ORDERED: SINCALIDE 5 MCG/5 ML VIAL IV ONE (15:12)
--- NOTE | 2017-01-25 15:41 | MB ---
cc: BRIE FLORES MD,RADHA Thomas M.D. DATE OF CONSULTATION: 01/25/[address] Montanez. REASON FOR CONSULTATION Leukocytosis, abdominal pain. Possible sepsis. HISTORY OF PRESENT ILLNESS This is a 36-year-old black female who presented to the emergency department on 01/24 with abdominal pain along with nausea and vomiting. The patient states that she developed blood in her urine on 01/22 and because it was the time of her menstrual cycle she thought it was the usual menstrual cycle, but the blood was mostly in the urine and she was not getting her usual bloody flow. She subsequently developed nausea and vomiting and abdominal pain mostly at the epigastric area. She denies diarrhea. The patient denies consumption of any unusual foods. She stated that she has had a poor appetite for some time and she has intentionally lost 50 pounds of weight over the past six months. She stated that she was having sweats but no documented fever. Her white count was 15.6 yesterday and today the white count has climbed up to 39.3 and differential shows 43% bands. She also has renal insufficiency with creatinine of 1.23 and estimated GFR of 59. Her liver function tests are normal. She did have a CT scan of the abdomen which showed suspected hepatocellular disease with an enlarged liver and periportal edema and also small ascites. There is a large pericholecystic fluid. The patient is scheduled to undergo a HIDA scan. An ultrasound of the liver revealed hepatomegaly and mild ascites and thickened gallbladder wall. Chest x-ray showed no acute disease. The patient denies hematemesis. She drinks alcohol on rare occasions. PAST MEDICAL HISTORY Significant for left hand surgery. ALLERGIES NO KNOWN DRUG ALLERGIES. MEDICATIONS 1. Levaquin. 2. Metronidazole. 3. Dilaudid p.r.n. 4. Ambien. 5. Potassium. SOCIAL HISTORY No tobacco, rare alcohol use, no illicit drugs. FAMILY HISTORY Noncontributory. REVIEW OF SYSTEMS GENERAL: No fever or chills. HEAD, EARS, EYES, NOSE AND THROAT: No visual blurring or diplopia. No difficulty swallowing or soreness of the throat. No nasal bleeding. No neck pain or neck swelling. CARDIOVASCUAR: No palpitation or chest pain. RESPIRATORY: No cough or shortness of breath. GASTROINTESTINAL: Significant for epigastric pain, nausea, vomiting. No diarrhea. GENITOURINARY: No urgency, frequency or dysuria. Blood noted in the urine. MUSCULOSKELETAL: Significant for menstrual cramping. HEMATOPOIETIC: No easy bruising or bleeding. ENDOCRINE: No polyuria or polydipsia. INTEGUMENTARY: No skin rash or itching. NEUROLOGIC: No problems with coordination or tremors or gait. PSYCHIATRIC: No problems with confusion or mental status changes. PHYSICAL EXAMINATION GENERAL: This is a pleasant, well-developed female in no acute distress. VITAL SIGNS: Temperature 98.1, BP 98/58, respirations 20, heart rate 80. HEENT: The head is atraumatic. Extraocular movements grossly intact. Pupils reactive to light without icterus. Oropharynx - slightly dry mucosa. NECK: Supple without adenopathy. LUNGS: Clear, decreased breath sounds bilateral. HEART: Regular rate and rhythm without murmurs, rubs or gallops. ABDOMEN: Bowel sounds present but diminished, soft, positive hepatomegaly. RECTAL: Not performed. EXTREMITIES: No clubbing or cyanosis or edema. SKIN: No rash. NEUROLOGIC: Nonfocal. PSYCHIATRIC: The patient calm and cooperative. LABORATORY DATA WBC 39.3, platelet count 149, 97% neutrophils, differential includes 43% bands. Creatinine 1.23, BUN 12, sodium 144, estimated GFR 59, AST 18, AST 14, total bilirubin 0.3. Urinalysis revealed a large amount of occult blood. Influenza testing negative. Blood culture pending. IMPRESSION 1. Leukocytosis and abdominal pain. Patient without clear evidence of source of sepsis to explain the leukocytosis. 2. Abnormal CT scan revealing enlarged liver and ascites. 3. Blood in urine which may be related to the patient's menstrual cycle. It is not clear that the patient has sepsis and the cause of her leukocytosis could very well be gallbladder disease related, although there is not much in the way of abnormality in her liver function tests. One would also be concerned about possible colitis causing this abnormality in the white count but she has no diarrhea. RECOMMENDATIONS 1. Continue Levaquin. 2. Continue Flagyl. 3. Monitor the blood cultures. 4. Monitor clinical symptoms and consider obtaining new cultures if there is any suggestion of the foci of infection. Thank you for this consultation. The patient's progress will be monitored and further recommendations will be given on followup if necessary. Brie Flores MD FD/REBECCA /1:15 PM /3:03 PM [facility]ITALKathleen
--- NOTE | 2017-01-25 15:49 | RADRPT ---
EXAM DATE/TIME: 01/25/2017 13:56 [facility] COMPARISON: No previous studies available for comparison. INDICATIONS : Abdominal pain with nausea and vomiting. DOSE: 4.1 mCi Tc99m Mebrofenin IV MEDICATION: 1.34 mcg Cholecystokinin IV; No symptomatic response. Cholecystokinin was administered by slow infusion over 8 minutes beginning at 60 minutes. MEDICAL HISTORY : None SURGICAL HISTORY : Hand surgery. ENCOUNTER: Initial ACUITY: 1 day PAIN SCALE: 8/10 LOCATION: Right upper quadrant TECHNIQUE: Following the intravenous administration of radiotracer, dynamic sequential image were performed with continuous acquisition. Time-activity curves were generated. FINDINGS: HEPATIIC KINETICS: There is prompt uptake of radiotracer in the liver. No focal defects are seen. There is normal rate of washout from the hepatic parenchyma. BILIARY CLEARANCE: Activity is first seen in the extrahepatic biliary system at 14 minutes. There is normal excretion i nto the small bowel. GALLBLADDER: Activity is first seen in the gallbladder at 22 minutes. POST CHOLECYSTOKININ: After Cholecystokinin administration, there is prompt emptying of the gallbladder with a 20 % ejectio n fraction. Common bile duct kinetics are normal and there is no evidence of biliary obstruction. BILIARY ENTERIC REFLUX: None observed. CLINICAL: The patient was asymptomatic after Cholecystokinin administration. CONCLUSION: Somewhat weak contractile response of the gallbladder to Kinevac suggesting possibility of a slight d egree of gallbladder dysfunction. However, the rest of the study is essentially normal. No evidence o f acute cholecystitis or evidence of biliary obstruction.. Joaquín Melendez MD on January 25, 2017 at 15:45 Board Certified Radiologist. This report was verified electronically.
--- NOTE | 2017-01-25 16:43 | PD.OP ---
cc: Av Wagner MD Operative Report Date of Surgery: Jan 25, 2017 Preoperative Diagnosis: (1) Acute cholecystitis Postoperative Diagnosis: (1) Acute cholecystitis Procedure: Laparoscopic cholecystectomy Anesthesia: GETA Surgeon: Av Wagner Bundle Sorter(s): Angel Operation and Findings: Complications: None apparent EBL: 5 cc Operative findings: Edematous gallbladder wall. Omental adhesions to the gallbladder. No stones identified. Procedure in detail: The patient was taken to the operating room and placed in the supine position. General endotracheal anesthesia was induced. The abdomen was prepped and draped in usual sterile fashion and a surgical timeout was performed to verify correct patient procedure and site. Appropriate perioperative antibiotics were administered. Local anesthetic was injected in the skin and subcutaneous tissue superior to the umbilicus and a 5 mm incision performed. The abdomen was entered using the Optiview 5 mm trocar with direct laparoscopic visualization. The abdomen was then insufflated to 15 mmHg with CO2 gas which the patient tolerated well. Next a 12 mm port was placed in the epigastrium and two 5 mm ports in the right upper quadrant and right lateral abdomen. The patient was placed in reverse Trendelenburg position and turned slightly to the left. Attention was turned to the right upper quadrant and the dome of the gallbladder was grasped and retracted cephalad. The gallbladder was edematous and there were omental adhesions to the gallbladder which were taken down with electrocautery The infundibulum was retracted laterally to expose Calot's triangle. Blunt dissection and judicious use of electrocautery was used to expose the cystic duct and the cystic artery directly entering the gallbladder. Two clips were placed proximally on each of these structures and one distally and they were transected. The gallbladder was then removed from the liver bed using electrocautery. Hemostasis was achieved. The gallbladder was then removed from the abdomen using an Endo Catch bag. The clips were in place on the cystic duct and cystic artery stumps with no bleeding or bile leakage. At this point, the abdomen was allowed to desufflate and trochars were removed. The fascia at the 12 mm port site was closed with 0 Vicryl suture. Skin was closed with subcuticular 4-0 Monocryl as well as Dermabond. The patient tolerated the procedure well and was extubated and taken to PACU in stable condition. All sponge and instrument counts were correct. Av Wagner MD Jan 25, 2017 16:43
--- NOTE | 2017-01-25 16:44 | EKG ---
Date Performed: 01/24/2017 Time Performed: 17:21:36 PTAGE: 36 years EKG: Sinus rhythm WITH OCCASIONAL PREMATURE ATRIAL COMPLEXES, SOME CONDUCTED AND SOME BLOCKED OTHERWISE WITHIN NORMAL LIMITS NO PREVIOUS TRACING DOCTOR: Satnam Anderson Interpretating Date/Time 01/25/2017 16:44:41
[2017-01-25] MEDS ORDERED: oxyCODONE/ACETAMINOPHEN 5 MG/325 MG TAB PO PRN (16:45)
[2017-01-25] MEDS ORDERED: *MEPERIDINE 25 MG INJ VIAL PERIprocedural Use ONLY ONE (16:58)
[2017-01-25] MEDS ORDERED: fentaNYL CITRATE 250 MCG/5 ML AMP ONE (17:01)
[2017-01-25] MEDS ORDERED: DO NOT ADM ANY ANTICOAGULANT DRUGS XX PRN (18:00)
[2017-01-25] MEDS: HYDROmorphone HCL PF 1 MG/ML VIAL IV PUSH PRN ×2 (18:29→23:17)
[2017-01-25] MEDS ORDERED: LEVOFLOXACIN 500 MG PREMIX INJ 100 ML IV SCH (21:00)
[2017-01-25] MEDS: oxyCODONE/ACETAMINOPHEN 5 MG/325 MG TAB PO PRN (21:31)
[2017-01-26] VITALS: BP 98/59; PULSE 80; RESP 18; TEMP 98.5; O2SAT 96
[2017-01-26 04:00] VITALS: BP 131/60; PULSE 71; RESP 18; TEMP 97.9; O2SAT 96
[2017-01-26] MEDS: metroNIDAZOLE 500 MG INJ 100 ML IV SCH ×2 (04:25→12:30)
[2017-01-26] MEDS: NS + KCL 20 MEQ INJ 1,000 ML IV SCH ×2 (04:28→14:00)
[2017-01-26] MEDS: ONDANSETRON HCL 4 MG/2 ML VIAL IV PRN (04:28)
[2017-01-26] MEDS: oxyCODONE/ACETAMINOPHEN 5 MG/325 MG TAB PO PRN ×2 (04:28→09:45)
[2017-01-26] MEDS: HYDROmorphone HCL PF 1 MG/ML VIAL IV PUSH PRN (06:28)
[2017-01-26 08:00] VITALS: BP 95/53; PULSE 63; PULSE 77; RESP 16; TEMP 97.7; O2SAT 99
[2017-01-26] MEDS: SODIUM CHLORIDE 0.9% FLUSH 5 ML FLUSH IVF SCH (08:10)
[2017-01-26 08:29] LABS: AUTOMATED NEUTROPHIL # 28.7 TH/MM3 (1.8-7.7); BASOPHIL % 0.1 % (0.0-2.0); EOSINOPHIL # 0.1 TH/MM3 (0-0.4); EOSINOPHIL % 0.3 % (0.0-4.0); LYMPHOCYTE # 0.9 TH/MM3 (1.0-4.8); MEAN CELL VOLUME 94.3 FL (80.0-100.0); MONO % 5.1 % (0.0-8.0); NEUT % 91.5 % (16.0-70.0); PLATELET COUNT 122 TH/MM3 (150-450); RED BLOOD COUNT 2.97 MIL/MM3 (4.00-5.30); RED CELL DISTRIBUTION WIDTH 13.6 % (11.6-17.2); WHITE BLOOD COUNT 31.3 TH/MM3 (4.0-11.0)
[2017-01-26 08:53] LABS: BICARBONATE 21.6 MEQ/L (21.0-32.0); CALCIUM-PROTEIN CORRECTED 8.1 MG/DL (8.5-10.1); TOTAL BILIRUBIN ADULT 0.3 MG/DL (0.2-1.0)
[2017-01-26 08:55] LABS: HEMO FLAGS AUTO DIFF
[2017-01-26 09:00] VITALS: O2SAT 98
--- NOTE | 2017-01-26 09:55 | HHI.PR ---
Subjective Remarks was planning to leave AMA last night. nursing had paperwork done then pt changed mind. says feeling better. described blood in urine with menstrual cycle Objective Vitals heart reg lung cta abd appropriately tender from surgery ext no edema Vital Signs Date Time Temp Pulse Resp B/P Pulse Ox O2 Delivery O2 Flow Rate FiO2 01/26/17 08:00 97.7 77 16 95/53 99 01/26/17 04:00 97.9 71 18 131/60 96 01/26/17 00:00 98.5 80 18 98/59 96 01/25/17 20:00 97.9 87 18 94/53 93 01/25/17 17:30 98.0 78 12 96/59 99 Nasal Cannula 2 01/25/17 17:15 71 12 95/56 98 Nasal Cannula 2 01/25/17 17:00 71 12 103/62 99 Nasal Cannula 3 01/25/17 16:55 98.0 61 12 95/70 98 Nasal Cannula 3 01/25/17 12:00 98.1 80 20 98/58 100 01/25/17 09:59 99 21 01/25/17 01/25/17 01/26/17 15:00 23:00 07:00 Intake Total 1320 ml 790 ml Output Total 15 ml Balance 1305 ml 790 ml Intake Oral 720 ml 240 ml IV Total 550 ml Other 600 ml Output Estimated Blood Loss 15 ml # Voids 1 2 # Bowel Movements 0 0 Result Diagram: 01/26/17 0713 01/26/17 0713 A/P Problem List: (1) Abdominal pain Status: Acute Plan: Pt presents with abdomen pain, alot of pericholecystic fluid concerning for acute cholecystitis, but also hepatomegaly. Also of note pt says she has "problems with hematuria when on her menstrual cycle." She has a rising leukocytosis of 39k with 43bands. mariana noted. Pt s/p cholecystectomy on 01/25 She will need to f/u GI for hepatomegaly she described some blood in her urine which she feels is related to menstrual cycle.....she was not interested in seeing a Cover Marker here but I offered.... I explained she needs a prompt referral to gynecology for proper examination and she has not been keeping up with routing pap/pelvic exams. pt eager for d/c . will await surgical reevaluation. cont abx and her wbc is only down to 31k addendum: spoke with Dr Wagner. We are not comfortable sending her home. Need to monitor for further improvement of her wbc. Also she is describing gross blood in urine. I have asked nurse to collect another u/a and call me with the description of the urine...if bloody will consult urology. She will have to leave AMA if she chooses to leave. (2) Hepatomegaly Status: Acute Plan: see above (3) Hematuria Status: Acute Plan: see above (4) MARIANA (acute kidney injury) Status: Acute Plan: see above Problem Qualifiers (1) Abdominal pain: Qualified Code: R10.11 - Right upper quadrant abdominal pain Satnam Montanez MD Jan 26, 2017 09:55
[2017-01-26 10:24] LABS: BANDS 32 % (0-6); POLYS (SEG NEUTROPHILS) 64 % (16-70); WBC DIFF SAMPLE 100
[2017-01-26 10:25] LABS: PLATELET ESTIMATE SMEAR LOW (NORMAL); PLATELET MORPHOLOGY NORMAL (NORMAL); SCAN/DIFF FINAL DIFF MANUAL
[2017-01-26 12:00] VITALS: BP 103/59; PULSE 69; RESP 16; TEMP 97.5; O2SAT 99
[2017-01-26] MEDS ORDERED: PERC5TAB12 PO (12:37)
[2017-01-26] MEDS ORDERED: diphenhydrAMINE HCL 25 MG CAP PO PRN (13:00)
--- NOTE | 2017-01-26 13:04 | HHI.PR ---
Subjective Subjective Notes She feels better and denies RUQ pain. She is sore at incisions. No N/V. Objective Vitals/I&O Vital Signs Date Time Temp Pulse Resp B/P Pulse Ox O2 Delivery O2 Flow Rate FiO2 01/26/17 12:00 97.5 69 16 103/59 99 01/26/17 09:00 21 01/25/17 17:30 Nasal Cannula 2 Labs Laboratory Tests Test 01/26/17 07:13 White Blood Count 31.3 Red Blood Count 2.97 Hemoglobin 9.5 Hematocrit 28.0 Mean Corpuscular Volume 94.3 Mean Corpuscular Hemoglobin 32.0 Mean Corpuscular Hemoglobin 34.0 Concent Red Cell Distribution Width 13.6 Platelet Count 122 Mean Platelet Volume 9.7 Neutrophils (%) (Auto) 91.5 Lymphocytes (%) (Auto) 3.0 Monocytes (%) (Auto) 5.1 Eosinophils (%) (Auto) 0.3 Basophils (%) (Auto) 0.1 Neutrophils # (Auto) 28.7 Lymphocytes # (Auto) 0.9 Monocytes # (Auto) 1.6 Eosinophils # (Auto) 0.1 Basophils # (Auto) 0.0 CBC Comment AUTO DIFF Differential Total Cells 100 Counted Neutrophils % (Manual) 64 Band Neutrophils % 32 Lymphocytes % 1 Monocytes % 3 Neutrophils # (Manual) 30.0 Differential Comment FINAL DIFF MANUAL Platelet Estimate LOW Platelet Morphology Comment NORMAL Red Cell Morphology Comment NORMAL Sodium Level 144 Potassium Level 4.0 Chloride Level 114 Carbon Dioxide Level 21.6 Anion Gap 8 Blood Urea Nitrogen 12 Creatinine 0.99 Estimat Glomerular Filtration 76 Rate Random Glucose 92 Calcium Level 7.4 Protein Corrected Calcium 8.1 Total Bilirubin 0.3 Aspartate Amino Transf 44 (AST/SGOT) Alanine Aminotransferase 24 (ALT/SGPT) Alkaline Phosphatase 62 Total Protein 5.9 Albumin 2.7 Date/Time Procedure Status Source Growth 01/24/17 18:00 Aerobic Blood Culture - Preliminary Resulted Blood Peripheral NO GROWTH IN 2 DAYS 01/24/17 18:00 Anaerobic Blood Culture - Preliminary Resulted Blood Peripheral NO GROWTH IN 2 DAYS 01/24/17 17:32 Influenza Types A,B Antigen (YANY) - Final Complete Nasal Washing NEGATIVE FOR FLU A AND B ANTIGEN.... Narrative Exam Awake and alert Abd: soft, inc c/d/i, mild post op ttp A/P Assessment and Plan 36 yo F with RUQ pain, nausea, vomiting, hepatomegaly. POD 1 s/p lap yola. She did appear to have gallbladder inflammation but not what I would expect with such elevated WBC. WBC remains 31 which persistent bandemia. The etiology is still unclear and I am not sure this was due to cholecystitis. I recommend that the patient remain in the hospital for further evaluation. I discussed this with Dr. Montanez who agrees. She also has been describing gross hematuria. The patient strongly desires to leave today and may leave regardless of recommendations. Bernard,Av LATHAM Jan 26, 2017 13:04
--- NOTE | 2017-01-26 14:15 | HHI.DCPOC ---
Discharge Care Plan Diagnosis: (1) Acute cholecystitis (2) MARIANA (acute kidney injury) (3) Hematuria (4) Hepatomegaly Goals to Promote Your Health * To prevent worsening of your condition and complications * To maintain your health at the optimal level Directions to Meet Your Goals Take your medications as prescribed Follow your dietary instruction Follow activity as directed Keep your appointments as scheduled Take your immunizations and boosters as scheduled If your symptoms worsen call your PCP, if no PCP go to Urgent Care Center or Emergency Room Smoking is Dangerous to Your Health. Avoid second hand smoke Call the 24-hour hour crisis hotline for domestic abuse at Satnam Montanez MD Jan 26, 2017 14:15
[2017-01-26] MEDS ORDERED: LEVA500T PO (14:17)
[2017-01-26] MEDS ORDERED: METR-1 PO (14:17)
== END 2017-01-26 14:29 | disposition left against medical advice (07) | DRG 418 ==
LOC: NEPB 13:01 → NEDA 19:03 → N04A 23:50
PROVIDERS: ADMIT Hospitalist; ATTEND Hospitalist
PROC: 0FT44ZZ Resection of Gallbladder, Percutaneous Endoscopic Approach (ICD-10-PCS; principal; 2017-01-25 15:49)
DX: K81.0 Acute cholecystitis (principal); N17.9 Acute kidney failure, unspecified; R16.2 Hepatomegaly with splenomegaly, not elsewhere classified
CPT/HCPCS: 71010; 74177; 76705; 78227; 80053; 80076; 81001; 83605; 83690; 84703; 85007; 85025; 85027; 85610; 85730; 87040; 87804; 88304; 93005; 96361; 96365; 96375; A9537; J0696; J1170; J1885; J1956; J2175; J2270; J2370; J2405; J2710; J2805; J3010; J3480; J7030; Q0169; Q9967

== ENCOUNTER 2017-01-28 10:05 | Emergency (ER) | payer OTHER ==
[~2017-01-28] VITALS: Ht 165.1 cm; Wt 70.0 kg
[~2017-01-28 10:05] MED LIST changes: -BACT800T5 PO; +LEVA500T PO; +METR-1 PO; +PERC5TAB12 PO
[2017-01-28 10:06] VITALS: BP 140/85; PULSE 76; RESP 15; TEMP 98.1; O2SAT 99
[2017-01-28] MEDS ORDERED: SODIUM CHLOR 0.9% 1000 ML INJ 1,000 ML IV SCH (10:50)
--- NOTE | 2017-01-28 10:55 | PD ---
HPI Chief Complaint: Abdominal Pain Time Seen by Provider: 10:28 Travel History International Travel<30 days: No Contact w/Intl Traveler<30days: No Traveled to known affect area: No History of Present Illness HPI The patient is a 36-year-old female who presents emergency department for abdominal pain. The patient states she underwent laparoscopic cholecystectomy on Friday by her general surgeon, Dr. Wanger. The patient states she was doing well on Friday was discharged home and a clear liquid diet. The patient was doing well until yesterday afternoon when she developed abdominal pain. The patient states she was at rest when abdominal pain developed and is progressively worsened throughout the night. The patient does complain of nausea and vomiting secondary to the abdominal pain. The patient's last bowel movement was this morning, loose, with a few hard stools. She has been passing gas without difficulty. The patient states she did have some abdominal distention which has improved, but continues to have the abdominal pain. She denies any fever. Symptoms are moderate, there are no known alleviating or exacerbating factors. PFSH Past Medical History Arthritis: Yes Asthma: No Cancer: No Cardiovascular Problems: No COPD: No Endocrine: No Genitourinary: No Immune Disorder: No Musculoskeletal: Yes Neurologic: No Psychiatric: No Reproductive: Yes (PAIN PELVIS AREA) Respiratory: Yes Immunizations Current: No Sleep Apnea: No Influenza Vaccination: No ?: Not LMP: now Past Surgical History Abdominal Surgery: No Cardiac Surgery: No Cholecystectomy: Yes (01/25/2017) Ear Surgery: No Endocrine Surgery: No Eye Surgery: No Genitourinary Surgery: No Gynecologic Surgery: No Oral Surgery: No Thoracic Surgery: No Social History Alcohol Use: No Tobacco Use: No Substance Use: No Allergies-Medications (Allergen,Severity, Reaction): Coded Allergies: No Known Allergies (Verified , 01/28/17) Reported Meds & Prescriptions Reported Meds & Active Scripts Active Percocet (Oxycodone-Acetaminophen) 5-325 mg Tab 1-2 Tab PO Q6H PRN Flagyl (Metronidazole) 500 Mg Tab 500 Mg PO TID 7 Days Levaquin (Levofloxacin) 500 Mg Tab 500 Mg PO DAILY 7 Days Review of Systems Except as stated in HPI: all other systems reviewed are Neg General / Constitutional: No: Fever Cardiovascular: No: Chest Pain or Discomfort Respiratory: No: Shortness of Breath Gastrointestinal: Positive: Nausea, Vomiting, Abdominal Pain, Changes in Bowel Habits, No: Diarrhea, Constipation Genitourinary: No: Dysuria Physical Exam Narrative GENERAL: Awake, alert, pleasant 36 year-old female who appears her stated age and is in no acute respiratory distress. She does appear moderate pain. SKIN: Warm and dry. HEAD: Atraumatic. Normocephalic. EYES: No injection or drainage. ENT: No nasal bleeding or discharge. Mucous membranes pink and moist. NECK: Trachea midline. No JVD. CARDIOVASCULAR: Regular rate and rhythm. No murmur appreciated. RESPIRATORY: No accessory muscle use. Clear to auscultation. Breath sounds equal bilaterally. GASTROINTESTINAL: Abdomen tender to palpation right upper quadrant and right flank. Postoperative changes noted over the skin with some mild ecchymosis over the right flank. Mild guarding. MUSCULOSKELETAL: No obvious deformities. No clubbing. No cyanosis. No edema. NEUROLOGICAL: Awake and alert. No obvious cranial nerve deficits. Motor grossly within normal limits. Normal speech. PSYCHIATRIC: Appropriate mood and affect; insight and judgment normal. Data Data Last Documented VS Vital Signs Date Time Temp Pulse Resp B/P Pulse Ox O2 Delivery O2 Flow Rate FiO2 01/28/17 12:29 67 18 101/56 99 Room Air 01/28/17 10:06 98.1 Orders Complete Blood Count With Diff (01/28/17 10:50) Comprehensive Metabolic Panel (01/28/17 10:50) Lipase (01/28/17 10:50) Lactic Acid (01/28/17 10:50) Iv Access Insert/Monitor (01/28/17 10:50) Ecg Monitoring (01/28/17 10:50) Oximetry (01/28/17 10:50) Morphine Inj (Morphine Inj) (01/28/17 11:00) Ondansetron Inj (Zofran Inj) (01/28/17 11:00) Sodium Chlor 0.9% 1000 Ml Inj (Ns 1000 M (01/28/17 10:50) Sodium Chloride 0.9% Flush (Ns Flush) (01/28/17 11:00) Hydromorphone Pf Inj (Dilaudid Pf Inj) (01/28/17 12:00) Labs Laboratory Tests Test 01/28/17 01/28/17 10:55 11:00 White Blood Count 13.2 TH/MM3 Red Blood Count 3.45 MIL/MM3 Hemoglobin 11.1 GM/DL Hematocrit 32.1 % Mean Corpuscular Volume 93.1 FL Mean Corpuscular Hemoglobin 32.1 PG Mean Corpuscular Hemoglobin 34.5 % Concent Red Cell Distribution Width 13.8 % Platelet Count 195 TH/MM3 Mean Platelet Volume 9.8 FL Neutrophils (%) (Auto) 80.2 % Lymphocytes (%) (Auto) 11.8 % Monocytes (%) (Auto) 6.8 % Eosinophils (%) (Auto) 0.7 % Basophils (%) (Auto) 0.5 % Neutrophils # (Auto) 10.6 TH/MM3 Lymphocytes # (Auto) 1.6 TH/MM3 Monocytes # (Auto) 0.9 TH/MM3 Eosinophils # (Auto) 0.1 TH/MM3 Basophils # (Auto) 0.1 TH/MM3 CBC Comment AUTO DIFF Differential Comment AUTO DIFF CONFIRMED Platelet Estimate NORMAL Platelet Morphology Comment NORMAL Red Cell Morphology Comment NORMAL Sodium Level 144 MEQ/L Potassium Level 3.5 MEQ/L Chloride Level 112 MEQ/L Carbon Dioxide Level 25.0 MEQ/L Anion Gap 7 MEQ/L Blood Urea Nitrogen 8 MG/DL Creatinine 0.94 MG/DL Estimat Glomerular Filtration 81 ML/MIN Rate Random Glucose 97 MG/DL Calcium Level 8.1 MG/DL Total Bilirubin 0.4 MG/DL Aspartate Amino Transf 23 U/L (AST/SGOT) Alanine Aminotransferase 23 U/L (ALT/SGPT) Alkaline Phosphatase 56 U/L Total Protein 6.2 GM/DL Albumin 2.8 GM/DL Lipase 145 U/L Lactic Acid Level 1.1 mmol/L [facility] Medical Decision Making Medical Screen Exam Complete: Yes Emergency Medical Condition: Yes Medical Record Reviewed: Yes Interpretation(s) Laboratory Tests Test 01/28/17 01/28/17 10:55 11:00 White Blood Count 13.2 TH/MM3 Red Blood Count 3.45 MIL/MM3 Hemoglobin 11.1 GM/DL Hematocrit 32.1 % Mean Corpuscular Volume 93.1 FL Mean Corpuscular Hemoglobin 32.1 PG Mean Corpuscular Hemoglobin 34.5 % Concent Red Cell Distribution Width 13.8 % Platelet Count 195 TH/MM3 Mean Platelet Volume 9.8 FL Neutrophils (%) (Auto) 80.2 % Lymphocytes (%) (Auto) 11.8 % Monocytes (%) (Auto) 6.8 % Eosinophils (%) (Auto) 0.7 % Basophils (%) (Auto) 0.5 % Neutrophils # (Auto) 10.6 TH/MM3 Lymphocytes # (Auto) 1.6 TH/MM3 Monocytes # (Auto) 0.9 TH/MM3 Eosinophils # (Auto) 0.1 TH/MM3 Basophils # (Auto) 0.1 TH/MM3 CBC Comment AUTO DIFF Sodium Level 144 MEQ/L Potassium Level 3.5 MEQ/L Chloride Level 112 MEQ/L Carbon Dioxide Level 25.0 MEQ/L Anion Gap 7 MEQ/L Blood Urea Nitrogen 8 MG/DL Creatinine 0.94 MG/DL Estimat Glomerular Filtration 81 ML/MIN Rate Random Glucose 97 MG/DL Calcium Level 8.1 MG/DL Total Bilirubin 0.4 MG/DL Aspartate Amino Transf 23 U/L (AST/SGOT) Alanine Aminotransferase 23 U/L (ALT/SGPT) Alkaline Phosphatase 56 U/L Total Protein 6.2 GM/DL Albumin 2.8 GM/DL Lipase 145 U/L Lactic Acid Level 1.1 mmol/L Differential Diagnosis Differential diagnosis includes postoperative seroma, postoperative hematoma, postoperative abscess, ileus, partial small bowel obstruction, retained biliary stone, perforated viscus. Narrative Course IV was established, labs are drawn and sent, and the patient was placed on cardiac telemetry monitoring and continuous pulse oximetry monitoring. The patient was administer morphine, Zofran, and IV fluids. The patient was kept nothing by mouth. A call was placed to the patient's general surgeon, Dr. Wagner , at 10:53 AM. I discussed with Dr. Wagner who recommends of evaluating the labs as the patient had significant increase in white count turned hospitalization prior to surgery and the day after surgery. He also states the patient signed out against medical transcriptionist despite having an elevated white count during admission. Therefore, after labs were evaluated, second call will be placed to Dr. Wagner. The patient's white count is 13.2, down from patient's previous white count several close to 30,000 during admission. I discussed the patient with Dr. Wagner at 12:06 PM, he is currently in the operating room, however, will come to the emergency department with his cases done to evaluate the patient. I let the patient noted that her labs had improved and that she would be evaluated by the general surgeon as soon as possible. The patient was evaluated by Dr. Wagner at 2:15 PM, patient feels improved and will be discharged home. Patient is comfortable with this plan of care and disposition. Pain medications have been written by Dr. Wagner. Return if symptoms worsen or progress. Diagnosis Primary Impression: Abdominal pain Qualified Code: R10.84 - Generalized abdominal pain Patient Instructions: General Instructions, Narcotic given in the ED Additional Instructions: Follow-up with her primary physician. Follow-up with Dr. Wagner on an outpatient basis. Return sooner if symptoms worsen or progress. Med/Other Pt SpecificInfo: Prescription(s) given Scripts Oxycodone-Acetaminophen (Percocet)5-325 mg Tab1-2 Tab PO Q6H PRN (PAIN) #10 TAB Ref 0 Prov:Av Wagner MD 01/28/17 Disposition: 01 DISCHARGE HOME Condition: Stable Juan Winston MD Jan 28, 2017 10:55
[2017-01-28] MEDS ORDERED: MORPHINE SULFATE 4 MG/ML INJ IV PUSH ONE (11:00)
[2017-01-28] MEDS ORDERED: SODIUM CHLORIDE 0.9% FLUSH 5 ML FLUSH IVF PRN (11:00)
[2017-01-28] MEDS ORDERED: ONDANSETRON HCL 4 MG/2 ML VIAL IVP ONE (11:00)
[2017-01-28 11:43] LABS: AUTOMATED NEUTROPHIL # 10.6 TH/MM3 (1.8-7.7); BASOPHIL # 0.1 TH/MM3 (0-0.2); BASOPHIL % 0.5 % (0.0-2.0); EOSINOPHIL # 0.1 TH/MM3 (0-0.4); EOSINOPHIL % 0.7 % (0.0-4.0); HEMATOCRIT 32.1 % (35.0-46.0); LYMPH % 11.8 % (9.0-44.0); LYMPHOCYTE # 1.6 TH/MM3 (1.0-4.8); MEAN CELL VOLUME 93.1 FL (80.0-100.0); MEAN CORPUSCULAR HEMOGLOBIN 32.1 PG (27.0-34.0); MEAN CORPUSCULAR HGB CONC 34.5 % (32.0-36.0); MONO % 6.8 % (0.0-8.0); NEUT % 80.2 % (16.0-70.0); PLATELET COUNT 195 TH/MM3 (150-450); RED BLOOD COUNT 3.45 MIL/MM3 (4.00-5.30); RED CELL DISTRIBUTION WIDTH 13.8 % (11.6-17.2); WHITE BLOOD COUNT 13.2 TH/MM3 (4.0-11.0)
[2017-01-28 11:45] LABS: HEMO FLAGS AUTO DIFF
[2017-01-28] MEDS ORDERED: HYDROmorphone HCL PF 1 MG/ML VIAL IV PUSH ONE (12:00)
[2017-01-28 12:01] LABS: ALT (GPT) 23 U/L (10-53); ANION GAP 7 MEQ/L (5-15); AST (GOT) 23 U/L (15-37); BLOOD UREA NITROGEN 8 MG/DL (7-18); CHLORIDE 112 MEQ/L (98-107); GLOMERULAR FILTRATION RATE 81 ML/MIN (>89); POTASSIUM 3.5 MEQ/L (3.5-5.1); SODIUM (NA) 144 MEQ/L (136-145)
[2017-01-28 12:04] LABS: ALKALINE PHOSPHATASE 56 U/L (45-117); TOTAL BILIRUBIN ADULT 0.4 MG/DL (0.2-1.0)
[2017-01-28 12:22] LABS: PLATELET ESTIMATE SMEAR NORMAL (NORMAL); PLATELET MORPHOLOGY NORMAL (NORMAL); SCAN/DIFF AUTO DIFF CONFIRMED
[2017-01-28 12:29] VITALS: BP 101/56; PULSE 67; RESP 18; O2SAT 99
[2017-01-28] MEDS ORDERED: PERC5TAB12 PO (14:24)
[2017-01-28 15:03] VITALS: BP 110/60
--- NOTE | 2017-01-28 16:02 | MB ---
cc: JORGE JO MD DATE OF CONSULTATION: 01/28/2017 REASON FOR CONSULTATION: Postoperative cholecystectomy of abdominal pain. BRIEF CONSULTATION: This is a 36-year-old female who underwent laparoscopic cholecystectomy. She three days ago on January 25. She was noted at that time have significantly elevated white blood count which show only slightly decreased to 30,000 the next day. She left the hospital against my recommendations and Dr. Montanez recommendations. She had actually been doing well at home and was tolerating liquids for the last couple of days. She then presented to the emergency department today with fairly severe abdominal pain and she did have an episode of emesis. She was evaluated in the emergency department by Dr. Winston and lab work was ordered. Her labs were essentially unremarkable. Once her white blood count has come down to 13,000 from 30,000. Her LFTs are unremarkable. Therefore no further imaging was performed. She had received the dose of Morphine as well as Zofran in the emergency department. When I went to evaluate the patient. She felt significantly better. Her pain was controlled. On exam she had mild postoperative tenderness and mild distension but no worrisome exam findings. Incisions clean, dry, intact with mild ecchymoses of the right lateral port site incision. I recommended down that the patient is okay for discharge and she will follow up with me in approximately 10 days. I did give her a prescription for 10 tablets of Percocet. She agrees and feels comfortable with this plan. MD OLIVER Graves/shmuel /3:35 PM /3:40 PM PATRICIA
== END 2017-01-28 15:05 | disposition home or self-care (01) ==
LOC: NEPC 10:05
DX: R10.9 Unspecified abdominal pain (principal); G89.18 Other acute postprocedural pain
CPT/HCPCS: 80053; 83605; 83690; 85025; 96361; 96374; 96375; 99284; J1170; J2405; J7030

== ENCOUNTER 2018-01-12 10:29 | Emergency (ER) | payer OTHER ==
[2018-01-12 11:23] VITALS: BP 149/83; PULSE 86; RESP 14; TEMP 98.3
--- NOTE | 2018-01-12 11:58 | PD ---
HPI Chief Complaint: Coal Digger Problem/Complaint Time Seen by Provider: 11:41 Travel History International Travel<30 days: No Contact w/Intl Traveler<30days: No Traveled to known affect area: No History of Present Illness HPI Examined in the presence of a female nurse at all times. 37-year-old female presents for evaluation of vaginal irritation and discharge. She reports that symptoms started yesterday has just slight itching. She assumed that she had a yeast infection and she used [id number] Vagistat on Friistat. She reports that overnight symptoms worsen and this prompted evaluation. She reports that irritation in the vaginal region, constant, associated discharged this morning. She denies any dysuria, abdominal pain, flank pain. She is sexually active with one long-term partner. She has no other complaints at this time. [facility] Past Medical History Arthritis: Yes Asthma: No Cancer: No Cardiovascular Problems: No COPD: No Endocrine: No Genitourinary: No Immune Disorder: No Musculoskeletal: Yes Neurologic: No Psychiatric: No Reproductive: Yes (PAIN PELVIS AREA) Respiratory: Yes Immunizations Current: No Sleep Apnea: No ?: Not Past Surgical History Abdominal Surgery: No Cardiac Surgery: No Cholecystectomy: Yes (01/25/2017) Ear Surgery: No Endocrine Surgery: No Eye Surgery: No Genitourinary Surgery: No Gynecologic Surgery: No Oral Surgery: No Thoracic Surgery: No Other Surgery: Yes Social History Alcohol Use: No Tobacco Use: No Substance Use: No Allergies-Medications (Allergen,Severity, Reaction): Coded Allergies: No Known Allergies (Verified , 01/28/17) Reported Meds & Prescriptions Reported Meds & Active Scripts Active Prednisone 20 Mg Tab 20 Mg PO BID 5 Days Review of Systems General / Constitutional: No: Fever, Chills Gastrointestinal: No: Nausea, Vomiting, Abdominal Pain Genitourinary: Positive: Discharge, No: Dysuria Physical Exam Narrative Examined in the presence of a female nurse GENERAL: Well-developed well-nourished female in no acute distress SKIN: Warm and dry. HEAD: Atraumatic. Normocephalic. EYES: Pupils equal and round. No scleral icterus. No injection or drainage. ENT: No nasal bleeding or discharge. Mucous membranes pink and moist. NECK: Trachea midline. No JVD. CARDIOVASCULAR: Regular rate and rhythm. No murmur appreciated. RESPIRATORY: No accessory muscle use. Clear to auscultation. Breath sounds equal bilaterally. GASTROINTESTINAL: Abdomen soft, non-tender, nondistended. Hepatic and splenic margins not palpable. Pelvic exam: The labial folds are erythematous and edematous. There is white discharge noted in the vaginal canal. There is no cervical motion tenderness or adnexal tenderness. Data Data Last Documented VS Vital Signs Date Time Temp Pulse Resp B/P (MAP) Pulse Ox O2 Delivery O2 Flow Rate FiO2 01/12/18 11:23 98.3 86 14 149/83 (105) Orders Orders Gc And Chlamydia Pcr (01/12/18 11:42) Wet Prep Profile (01/12/18 11:42) Ed Urine Pregnancytest Poc (01/12/18 11:42) Dexamethasone Inj (Decadron Inj) (01/12/18 12:15) Diphenhydramine Inj (Benadryl Inj) (01/12/18 12:15) Ed Discharge Order (01/12/18 12:54) Labs Laboratory Tests Test 01/12/18 12:10 Clue Cells (Wet Prep) NONE SEEN Vaginal Trichomonas (Wet Prep) NONE SEEN Vaginal Yeast (Wet Prep) NONE SEEN MDM Medical Decision Making Medical Screen Exam Complete: Yes Emergency Medical Condition: Yes Medical Record Reviewed: Yes Differential Diagnosis Localized allergic reaction, vaginitis, vaginosis, cervicitis Narrative Course ED urine test is negative. Wet prep, GC probe were performed. The patient appears to be having a localized allergic reaction to the Vagistat or Monistat. She will be given Decadron and Benadryl. Wet prep is negative. The patient will be discharged with a course of prednisone. Diagnosis Primary Impression: Allergic reaction caused by a drug Additional Instructions: Medication as prescribed. Benadryl every [address] or drink alcohol when taking Benadryl. Follow-up with primary care physician as needed and return for any emergent medical conditions. Med/Other Pt SpecificInfo: Prescription(s) given Scripts Prednisone (Prednisone) 20 Mg Tab 20 MG PO BID for 5 Days, #10 TAB 0 Refills Prov: Castro Ramos MD 01/12/18 Disposition: 01 DISCHARGE HOME Condition: Stable Scott Kim Jan 12, 2018 11:58
[2018-01-12] MEDS ORDERED: diphenhydrAMINE HCL 50 MG/ML VIAL IM ONE (12:15)
[2018-01-12] MEDS ORDERED: DEXAMETHASONE SOD PHOS 4 MG/ML VIAL IM ONE (12:15)
[2018-01-12] MEDS ORDERED: PRED20 PO (12:49)
== END 2018-01-12 13:11 | disposition home or self-care (01) ==
LOC: NEPK 10:29
DX: T50.995A Adverse effect of other drugs, medicaments and biological substances, initial encounter (principal); X58.XXXA Exposure to other specified factors, initial encounter
CPT/HCPCS: 84703; 87210; 87491; 87591; 96372; 99284; J1100; J1200